=== PATIENT | male | born 1995 | race Two or more races ===

== ENCOUNTER 2024-11-18 17:03 | Emergency (ER) | payer SELFPAY ==
[~2024-11-18] VITALS: Ht 177.8 cm; Wt 115.0 kg
[2024-11-18 17:05] VITALS: TEMP 98.6
[2024-11-18] MEDS: SODIUM CHLORIDE 0.9% 1,000 ML IV ONE (17:23)
[2024-11-18] MEDS: ONDANSETRON HCL 4 MG/2 ML VIAL IV ONE (17:23)
--- NOTE | 2024-11-18 17:31 | ED.PDOC ---
HPI Comments HPI: Poor Historian. 23-year-old male brought in by ambulance from home for evaluation of diaphoresis nausea and vomiting nonbilious nonbloody and nonspecific chest pain that happened while he was showering today. Never had this happened before. Denies any use of drugs or alcohol or tobacco. He only smokes marijuana. Denies any allergies. Patient had three episodes of nausea and vomiting today. Denies any abdominal pain or diarrhea or fever. Vitals Temp: 98.6 F HR: 58 RR: 18 BP: 129/83 SPO2: 97% RA Past Medical History: Denies Past Surgical History: Denies REVIEW OF SYSTEMS: CONSTITUTIONAL: Denies acute: fever, chills, HEAD: Denies acute: headache, photophobia Eyes: Denies acute: Double vision, vision loss, eye pain, eye discharge. EARS: Denies acute: tinnitus, hearing loss, ear discharge, ear pain, THROAT: Denies acute: sore throat, swelling, difficulty swallowing , pain with swallowing, change in voice. NECK: Denies acute: neck pain, neck swelling, stiff neck. HEART: Denies acute : , palpitations, LUNGS: Denies acute: SOB, wheezing, cough, hemoptysis ABDOMEN: Denies acute: abdominal pain, , diarrhea, melena , hematemesis, hematochezia SKIN: Denies acute: rash, redness, lesions, itchiness. EXTREMITIES: Denies acute: calf pain, numbness, tingling, weakness, denies pain in extremity. Denies acute: Low back pain. Neuro: Denies acute: focal neurological deficit, motor or sensory focal neurological deficit, tremors, seizure like activity, confusion, dizziness, change in mental status, loss of bowel or bladder function, cauda equina like symptoms. : Denies acute: dysuria, hematuria, flank pain, increase in urinary frequency. PSYCH: Denies acute: hallucination, suicidal ideation, homicidal ideation. PHYSICAL EXAM: General: ----mild----acute distress, awake and alert. Head: normocephalic, atraumatic. Neck: supple, trachea is midline, no swelling. Throat: Normal phonation. Eyes:, no erythema, no purulent discharge, no proptosis, no icterus. Heart: regular tachycardia, no significant murmur appreciated. Lungs: no apparent respiratory distress, Able to speak in full sentences. No wheezing, no rhonchi, no crackles. No stridors Clear to auscultation bilaterally. Abdomen: non tender to palpation, slightly distended, soft, no guarding, no rebound, + bowel sounds. Neuro: Awake, Alert, oriented to name, self, situation, follows commands GCS=15. Speech is normal. Skin: no petechia, no purpura, no cyanosis, non-pale, not jaundice. Lower extremities: --no - Pitting edema no deformity, no focal swelling, no calf TTP. Makes eye contact. moves all four extremities. Face: no apparent facial droop. Ambulating in the ED independently. ED COURSE: Chief Complaint: Chest Pain Time Seen by MD: 17:25 Primary Care Provider: NONE Reviewed Notes: Nurses Notes, Allergies Allergies: Coded Allergies: NO KNOWN ALLERGIES (Unverified , 11/18/24) Information Source: Patient Mode of Arrival: EMS Past Medical History PAST MEDICAL HISTORY: Denies Surgical History: Denies all surgeries Family History Family History: Reviewed,noncontributory to illness Social History Smoker: Non-Smoker Alcohol: Denies ETOH Use Drugs: Marijuana Lives In: Home Was a procedure done? Was a procedure done?: No CP Differential Dx Differential Diagnosis: N/A Differential Diagnosis: Other (As far as abdominal pain, DDX include but not limited to diverticulitis, colitis, gastroenteritis, acute abdomen, SBO, enteritis, constipation, volvulus, appendicitis, Gallbladder disease, choledocolithiasis, ascending cholangitis, pancreatitis, intraAbdominal mass/neoplasm, hepatitis, UTI, pylonephritis, kidney stone, aneurysm, dissection, Inflammatory bowel disease, gastroparesis, ischemic bowel.) Differential Diagnosis: Angina, Costochondritis, Gastritis, Other (Ddx include but not limitied to gastritis, musculoskeletal pain, radiculopathy, atypical chest pain, dissection, aneurysm, ACS, unstable angina, hiatal hernia, GERD, anxiety, costochondritis, PE, pneumothroax, neoplasm, cardiac ischemia, drug abuse, anemia.) X-Ray, Labs, Meds, VS Vital Signs Date Time Temp Pulse Resp B/P (MAP) Pulse Ox O2 Delivery O2 Flow Rate FiO2 11/18/24 17:49 49 18 116/39 (64) 98 11/18/24 17:07 50 11/18/24 17:05 98.6 58 18 129/83 (98) 97 98.6 Lab Test 11/18/24 17:44 Range/Units White Blood Count 10.0 4.4-10.8 10^3/uL Red Blood Count 4.82 4.5-5.90 10^6/uL Hemoglobin 14.4 13.5-17.5 g/dL Hematocrit 42.9 41.0-53.0 % Mean Corpuscular Volume 89.1 80.0-100.0 fL Mean Corpuscular Hemoglobin 29.9 28.0-32.0 pg Mean Corpuscular Hemoglobin Concent 33.5 32.0-36.0 g/dL Red Cell Distribution Width 12.5 11.8-14.3 % Platelet Count 225 140-450 10^3/uL Mean Platelet Volume 7.6 6.9-10.8 fL Neutrophils (%) (Auto) 54.9 37.0-80.0 % Lymphocytes (%) (Auto) 34.3 10.0-50.0 % Monocytes (%) (Auto) 8.1 0.0-12.0 % Eosinophils (%) (Auto) 2.3 0.0-7.0 % Basophils (%) (Auto) 0.4 0.0-2.0 % Neutrophils # (Auto) 5.5 1.6-8.6 10 ^3/uL Lymphocytes # (Auto) 3.4 0.4-5.4 10 ^3/uL Monocytes # (Auto) 0.8 0-1.3 10 ^3/uL Eosinophils # (Auto) 0.2 0-0.8 10 ^3/uL Basophils # (Auto) 0 0-0.2 10 ^3/uL Nucleated Red Blood Cells 0.0 % Sodium Level 141 136-145 mmol/L Potassium Level 3.5 3.5-5.1 mmol/L Chloride Level 110 H 98-107 mmol/L Carbon Dioxide Level 26 20-31 mmol/L Anion Gap 5 5-15 Blood Urea Nitrogen 10 9-23 mg/dL Creatinine 1.25 0.700-1.30 mg/dL Glomerular Filtration Rate Calc 80 >90 mL/min BUN/Creatinine Ratio 8.0 L 10.0-20.0 Serum Glucose 112 H 74-106 mg/dL Lactic Acid Level 2.0 0.4-2.0 mmol/L Calcium Level 9.3 8.7-10.4 mg/dL Magnesium Level 2.0 1.6-2.6 mg/dL Total Bilirubin 0.4 0.2-1.0 mg/dL Aspartate Amino Transferase (AST) 24 13-40 U/L Alanine Aminotransferase (ALT) 39 7-40 U/L Alkaline Phosphatase 119 H 46-116 U/L Creatine Kinase 233 H 46-171 U/L Troponin I High Sensitivity 5 </=54 ng/L Total Protein 7.5 5.7-8.2 g/dL Albumin 4.3 3.2-4.8 g/dL Lipase 33 12-53 U/L Plasma/Serum Blood Alcohol 4.6 <10 mg/dL [place] [id number] Ph: [phone] DIAGNOSTIC IMAGING Diagnostic Imaging Report : [id number] Signed PATIENT: TONY GOMEZ ACCT: [id number] UNIT: [id number] : 1995 LOC: ER ROOM / BED: / AGE / SEX: 29 / M ADM STATUS: REG ER SERVICE 13 ORDERING PHYSICIAN: CAMERON DE JESUS DO PROCEDURE(s): CXRP - CHEST PORTABLE REASON: n/v diaphoretic, cp ORDER NUMBER(s): [id number], ACCESSION NUMBER(s): [id number] EXAM: XR Chest, 1 View CLINICAL INDICATION: n/v diaphoretic, cp TECHNIQUE: Frontal view of the chest. COMPARISON: None FINDINGS: LUNGS AND PLEURAL SPACES: Mild pulmonary congestion. No consolidation. No pneumothorax. HEART: Unremarkable. No cardiomegaly. MEDIASTINUM: Unremarkable. Normal mediastinal contour. BONES/JOINTS: Unremarkable. No acute fracture. OTHER FINDINGS: . IMPRESSION: Mild pulmonary congestion. ATED BY: KAROLINA PHILLIPS MD DICTATED DATE/TIME: 11/18/241820 SIGNED BY: KAROLINA PHILLIPS MD SIGNED DATE/TIME: 11/18/241820 CC: [address] [place] [address], [place] - [address] Ph: [phone] DIAGNOSTIC IMAGING Diagnostic Imaging Report : [id number] Signed PATIENT: TONY GOMEZ ACCT: [id number] UNIT: [id number] : 1995 LOC: ER ROOM / BED: / AGE / SEX: 29 / M ADM STATUS: REG ER SERVICE 1710 ORDERING PHYSICIAN: CAMERON DE JESUS DO PROCEDURE(s): ABPL - CT AB PEL WO CON-NO ORAL OR IV REASON: n/v diaphoretic, cp/ ORDER NUMBER(s): [id number], ACCESSION NUMBER(s): [id number] Procedure: CT CT AB PEL WO CON-NO ORAL OR IV 11/18/2024 05:54 PM Indication: n/v diaphoretic, cp/ Comparison Study: None Technique: Axial images were obtained and reformatted in coronal and sagittal planes. All CT scans at this medical facility are performed using dose modulation techniques as appropriate to a performed exam including the following: Automated exposure control was utilized; adjustment of the MA and/or KV according to patient size; and use of iterative reconstruction technique. CT Dose: CTDI volume is 22.86 mGy. Dose-length product is 1325.64 mGy*cm FINDINGS: Lower Chest: Unremarkable. Hepatobiliary: Unremarkable. Spleen: Unremarkable. Pancreas: Unremarkable. Adrenal Glands: Unremarkable. tract: The kidneys are normal in size bilaterally without hydronephrosis or nephrolithiasis. The urinary bladder is unremarkable. GI tract: The stomach is grossly normal in appearance. Nondistended fluid-filled small bowel loops in the mid to lower abdomen. Mild circumferential mural thickening of the ascending and transverse colon noted. The appendix is normal. Lymphatics: No mesenteric, retroperitoneal or periportal lymphadenopathy. Vasculature: The abdominal aorta is normal in in caliber. Pelvic Organs: Unremarkable Bones/soft tissues: No acute abnormality. Other: None. IMPRESSION: 1. Findings suggestive of enterocolitis. No evidence of bowel obstruction. ATED BY: MADIE GALEAS MD DICTATED DATE/TIME: 11/18/24 1833 SIGNED BY: MADIE GALEAS MD SIGNED DATE/TIME: 11/18/24 1833 CC: Time of 1ST Reevaluation: 17:31 Reevaluation 1ST: Unchanged Patient Education/Counseling: Diagnosis, Treatment Family Education/Counseling: No Family Present Comments Patient eloped Patient presented with the above HPI.---GI and chest pain cardiac---workup was initiated. patient was found with the above mentioned diagnosis. the following medications were ordered: please refer to order lists of meds and tests obtained by myself Dr. De Jesus. Patient has been observed in the ED adequate length of time to insure improvement/stability. Escalation of care considered: Consideration of escalation to observation or admission Patient eloped All the reports of any imaging studies that were ordered by myself were reviewed by myself. Departure 1 Departure Time of Disposition: 19:18 Impression: Primary Impression: Enterocolitis Additional Impressions: Pulmonary vascular congestion Chest pain Nausea and vomiting Eloped from emergency department Disposition: 07 LEFT AWOL/ELOPED Condition: Guarded Additional Instructions: Patient eloped Discharged With: Self Critical Care Note Critical Care Time?: No Heart Score Heart Score: Heart Score Response (Comments) Value History Slightly Suspicious 0 EKG Normal 0 Age <45 0 Risk Factors No known risk factors 0 Troponin Normal limit 0 Total 0 I personally scribed for CAMERON DE JESUS DO ([email or web address]) on 11/18/24 at 17:31. El ectronically submitted by Kamilah Sosa ([facility]). I personally scribed for CAMERON DE JESUS DO ([email or web address]) on 11/18/24 at 20:06. Elect ronically submitted by Kamilah Sosa ([facility]). CAMERON DE JESUS DO Nov 18, 2024 17:31
[2024-11-18 17:49] VITALS: BP 116/39; PULSE 49; RESP 18; O2SAT 98
[2024-11-18 18:00] LABS: Basophils # (auto) 0 10 ^3/uL (0-0.2); Basophils % (auto) 0.4 % (0.0-2.0); Eosinophils # (auto) 0.2 10 ^3/uL (0-0.8); Eosinophils % (auto) 2.3 % (0.0-7.0); Hematocrit 42.9 % (41.0-53.0); Hemoglobin 14.4 g/dL (13.5-17.5); Lymphocytes # (auto) 3.4 10 ^3/uL (0.4-5.4); Lymphocytes % (auto) 34.3 % (10.0-50.0); Mean Corpuscular Hemoglobin 29.9 pg (28.0-32.0); Mean Corpuscular Hgb Conc. 33.5 g/dL (32.0-36.0); Mean Corpuscular Volume 89.1 fL (80.0-100.0); Monocytes # (auto) 0.8 10 ^3/uL (0-1.3); Monocytes % (auto) 8.1 % (0.0-12.0); Neutrophils # (auto) 5.5 10 ^3/uL (1.6-8.6); Neutrophils % (auto) 54.9 % (37.0-80.0); Platelet Count (auto) 225 10^3/uL (140-450); Red Blood Cells 4.82 10^6/uL (4.5-5.90); Red Cell Distribution Width 12.5 % (11.8-14.3)
--- NOTE | 2024-11-18 18:16 | ECG ---
[facility] Test Date: 2024-11-18 Test Time: 17:07:01 Pat Name: TONY GOMEZ Department: ED Room: Gender: M Regional Trainer: prashanth : 1995 Requested By: CAMERON DE JESUS Order Number: [id number] Reading MD: Josh Roque Measurements Intervals [place] Rate: 50 P: 69 FL: 160 QRS: 46 QRSD: 79 T: 50 QT: 434 QTc: 396 Interpretive Statements Sinus rhythm ST elev, probable normal early repol pattern Electronically Signed On 11-20-2024 22:09:25 PDT by Josh Roque Please click the below link to view image of tracing.
[2024-11-18 18:17] LABS: Alanine Aminotransferase 39 U/L (7-40); Albumin 4.3 g/dL (3.2-4.8); Anion Gap 5 (5-15); Aspartate Aminotransferase 24 U/L (13-40); Blood Urea Nitrogen 10 mg/dL (9-23); Calcium 9.3 mg/dL (8.7-10.4); Carbon Dioxide 26 mmol/L (20-31); Lipase 33 U/L (12-53); Potassium 3.5 mmol/L (3.5-5.1); Sodium 141 mmol/L (136-145); Total Protein 7.5 g/dL (5.7-8.2)
[2024-11-18 18:18] LABS: Bilirubin, Total 0.4 mg/dL (0.2-1.0)
--- NOTE | 2024-11-18 18:24 | DVH ---
EXAM: XR Chest, 1 View CLINICAL INDICATION: n/v diaphoretic, cp TECHNIQUE: Frontal view of the chest. COMPARISON: None FINDINGS: LUNGS AND PLEURAL SPACES: Mild pulmonary congestion. No consolidation. No pneumothorax. HEART: Unremarkable. No cardiomegaly. MEDIASTINUM: Unremarkable. Normal mediastinal contour. BONES/JOINTS: Unremarkable. No acute fracture. OTHER FINDINGS: . IMPRESSION: Mild pulmonary congestion.
--- NOTE | 2024-11-18 18:35 | DVH ---
Procedure: CT CT AB PEL WO CON-NO ORAL OR IV 11/18/2024 05:54 PM Indication: n/v diaphoretic, cp/ Comparison Study: None Technique: Axial images were obtained and reformatted in coronal and sagittal planes. All CT scans at this medical facility are performed using dose modulation techniques as appropriate to a performed e xam including the following: Automated exposure control was utilized; adjustment of the MA and/or KV according to patient size; and use of iterative reconstruction technique. CT Dose: CTDI volume is 22. 86 mGy. Dose-length product is 1325.64 mGy*cm FINDINGS: Lower Chest: Unremarkable. Hepatobiliary: Unremarkable. Spleen: Unremarkable. Pancreas: Unremarkable. Adrenal Glands: Unremarkable. tract: The kidneys are normal in size bilaterally without hydronephrosis or nephrolithiasis. The u rinary bladder is unremarkable. GI tract: The stomach is grossly normal in appearance. Nondistended fluid-filled small bowel loops in the mid to lower abdomen. Mild circumferential mural thickening of the ascending and transverse col on noted. The appendix is normal. Lymphatics: No mesenteric, retroperitoneal or periportal lymphadenopathy. Vasculature: The abdominal aorta is normal in in caliber. Pelvic Organs: Unremarkable Bones/soft tissues: No acute abnormality. Other: None. IMPRESSION: 1. Findings suggestive of enterocolitis. No evidence of bowel obstruction.
[2024-11-18 19:22] LABS: Alkaline Phosphatase 119 U/L (46-116); Chloride 110 mmol/L (98-107); Creatine Kinase IFCC 233 U/L (46-171); Glucose 112 mg/dL (74-106)
[2024-11-18 19:36] LABS: Blood Alcohol 4.6 mg/dL (<10)
== END 2024-11-18 20:23 | disposition left against medical advice (07) ==
LOC: ER 17:03 → EDBD 17:03 → ER 20:23
DX: K52.9 Noninfective gastroenteritis and colitis, unspecified (principal); R09.89 Other specified symptoms and signs involving the circulatory and respiratory systems; R07.9 Chest pain, unspecified; R61 Generalized hyperhidrosis; F12.90 Cannabis use, unspecified, uncomplicated
CPT/HCPCS: 36415; 71045; 74176; 80053; 80320; 82550; 83605; 83690; 83735; 84484; 85025; 93005

== ENCOUNTER 2024-11-24 19:52 | Emergency (ER) | payer MEDICAID, OTHER ==
[~2024-11-24] VITALS: Ht 190.5 cm; Wt 280.0 kg
[2024-11-24 19:59] VITALS: BP 0/0; PULSE 0; RESP 16; TEMP 100.5; O2SAT 0
[2024-11-24] MEDS: CALCIUM CHLOR(10%) 100MG/ML 10ML SYRINGE IV ONE (20:02)
[2024-11-24] MEDS: EPINEPHrine HCL 1 MG/10 ML SYRG ONE ×2 (20:04→20:18)
--- NOTE | 2024-11-24 20:09 | ED.PDOC ---
CPR-HPI HPI Comments 29-year-old male with unknown cardiac history brought in by EMS for CC of witnessed arrest. Per EMS, patient was with family and had a witnessed collapse, was unresponsive and family called 911. Approximate down time was 5 minutes. CPR was initiated by Law Enforcement responding to call. En route, patient was given EPI x 3 and was intubated. IO access established to left lower tibia. Patient arrived to ED with CPR in progress via Auto-Pulse (automatic compression device). ACLS protocols continued when patient arrived to Bed 19. ACLS protocols were continued on arrival to the ED. Time Seen by MD: 19:51 Primary Care Provider: NONE Reviewed Notes: Medications, Allergies Allergies: Coded Allergies: NO KNOWN ALLERGIES (Unverified , 11/18/24) Information Source: Emergency Med Personnel Mode of Arrival: EMS Timing: Minutes Duration: Down time prior EMS: (5 minutes) Onset: Witnessed Available Hx: Unknown Inital rhythm: Asystole Treatment: CPR, Intubation, Epinephrine Response: No response Associated signs and symptoms: Unknown Review of Systems: REVIEW OF SYSTEMS:Unable to obtain due to patient being unresponsive. Vital Signs Vital Signs Date Time Temp Pulse Resp B/P (MAP) Pulse Ox O2 Delivery O2 Flow Rate FiO2 11/24/24 19:59 100.5 0 0 0/0 (0) 0 100.5 11/24/24 19:59 Mechanical Ventilator+ 25 100 100 Physical Exam General: Patient is unresponsive HEENT: Pupils fixed, dilated, nonreactive. There is no corneal reflex. Skin: Palms and soles pale. Cardiac: No heart sounds auscultated, no pulses palpated Abdomen: Soft, nondistended Respiratory: No spontaneous respirations, no breath sounds auscultated. Mechanical breath sounds auscultated over b/l upper lobes with bagging. Neuro: GCS 3, patient is unresponsive to painful stimulus, Past Medical History Past Medical History (Other): UNKNOWN HEART CONDITION Surgical History: Denies all surgeries Family History Family History: Reviewed,noncontributory to illness Social History Smoker: Non-Smoker Alcohol: Denies ETOH Use Drugs: Marijuana Lives In: Home Was a procedure done? Was a procedure done?: No Differential Dx CPR Differential Diagnosis: Cardiopulmonary arrest, Myocardial Infarction, Pulmonary Embolus, Other Other Differential Diagnosis CVA X-Ray, Labs, Meds, VS Vital Signs Date Time Temp Pulse Resp B/P (MAP) Pulse Ox O2 Delivery O2 Flow Rate FiO2 11/24/24 19:59 100.5 0 0 0/0 (0) 0 100.5 11/24/24 19:59 0 16 Mechanical Ventilator+ 25 100 100 11/24/24 19:52 100.5 0 0 0/0 (0) 0 100.5 Time of 1ST Reevaluation: 20:46 Reevaluation 1ST: N/A Patient Education/Counseling: Pt Unresponsive Family Education/Counseling: Diagnosis, Treatment Departure 1 Departure Time of Disposition: 20:47 Impression: Primary Impression: Cardiac arrest Disposition: 20 Condition: Other Comments Cardiac compressions were performed by staff in order to sustain blood flow. The patient was ventilated and oxygenated. The patient received appropriate ACLS measures and these were repeated as necessary throughout the resuscitation. CPR was performed under my direct supervision and guidance. See patient resuscitation status note for medications and times given. Critical care time spent > 30 minutes in coordination of efforts for cardiopulmonary resuscitation. Family members were notified that the patient may pass away soon. After > 60 minutes of resuscitation efforts, > 10 rounds of epinephrine in addition to sodium bicarbonate, dextrose, and calcium patient remained in asystole and no ROSC was obtained. There was no cardiac activity on bedside ultrasound. A single defibrillation was performed at family's request. Family requested resuscitation efforts be continued until patient's mother arrived at the hospital. Additional doses of epinephrine were discontinued. Compressions were continued at family member's request until patient's mother arrived. After discontinuation of resuscitation, I did not observe spontaneous breathing or appreciate heart sounds on auscultation. There was no palpable radial pulse. The patient did not respond to nail bed stimuli. I examined the patient and there was no pupillary response to light. Patient was pronounced . TOD: 20:46 Critical Care Note Critical Care Time?: No Heart Score Heart Score: Heart Score Response (Comments) Value History N/A 0 EKG N/A 0 Age N/A 0 Risk Factors N/A 0 Troponin N/A 0 Total 0 Stability Stability form required: No I personally scribed for BUSHRA FAIRBANKS MD ([email or web address]) on 11/24/24 at 20:09. Electronically submitted by Abimael Barrios ([email or web address]). I personally scribed for BUSHRA FAIRBANKS MD ([email or web address]) on 11/24/24 at 20:33. Electronically submitted by Abimael Barrios ([email or web address]). I personally scribed for BUSHRA FAIRBANKS MD ([email or web address]) on 11/24/24 at 20:36. Electronically submitted by Abimael Barrios ([email or web address]). I personally scribed for BUSHRA FAIRBANKS MD ([email or web address]) on 11/24/24 at 20:45. Electronically submitted by Abimael Barrios ([email or web address]). I personally scribed for BUSHRA FAIRBANKS MD ([email or web address]) on 11/24/24 at 20:48. Electronically submitted by Abimael Barrios ([email or web address]). BUSHRA FAIRBANKS MD Nov 24, 2024 20:09
--- NOTE | 2024-11-25 02:31 | RESUS ---
CODE BLUE ASSESSSMENT History of Events History of Events: 29-year-old male with unknown cardiac history brought in by EMS for CC of witnessed arrest. Per EMS, patient was with family and had a witnessed collapse, was unresponsive and family called 911. Approximate down time was 5 minutes. CPR was initiated by Law Enforcement responding to call. En route, patient was given EPI x 3 and was intubated. IO access established to left lower tibia. Patient arrived to ED with CPR in progress via Auto-Pulse (automatic compression device). ACLS protocols continued when patient arrived to Bed 19. ACLS protocols were continued on arrival to the ED. Initial Information Date: Nov 24, 2024 Location of Arrest: In Field Arrest Witnessed: Yes CPR started by whom: EMS Last seen well: RIGHT BEFORE ARREST Pre-Hospital Care: ACLS Type of arrest: Cardiac, Respiratory, Trauma, Adult, Witnessed Spontaneous Respirations: No Pulse Present: No Monitoring: ECG, Pulse Oximetry, Apnea, Telemetry Crash Cart Opened and Supplies: Yes Comment: UNKNOWN TIME OF ARREST OR TIME OF INITIAL CPR ALL DONE IN FIELD, ARRIVED TO ED 1950 Airway Ventilation Breathing at Onset: Apneic O2 Sat by Pulse Oximetry: 0 Oxygen Delivery Method: Ambu-Bag Oxygen 100% BY EMS Artificial Ventilation: Bag/Endo tube Intubation Size: 7.0 cuffed Intubated by: EMS Intubated orally: Yes Intubated Nasaly: No Tube secured at: 24 CO2 indicator used: Yes Confirmation: Auscultation, Exhaled CO2 Comments: INTUBATION DONE BY EMS UNKNOWN TIME Circulation Circulation : Time: 20:54 Pulse Rate (adult): 0 Blood Pressure Systolic: 0 Blood Pressure Diastolic: 0 Temperature (Fahrenheit): 100.5 Defibrillation Defbrillation : Time Defibrillator Applied: 20:14 EKG Rhythm: Asystole Compressions: Device Compressions Hold/Resume: 2013 Time Defibrillator Shocked Pt.: 20:14 Defib. Joules: 120 EKG Rhythm: Asystole Comment FAMILY REQUESTED 1 SHOCK. Procedure - IV Procedure - IV : IV start time: 20:14 IV Side: Left IV Location: External Jugular IV Catheter Type: Saline Lock IV Placed by NATASHA ZAMUDIO IV Gauge: 18 IV Line Care: Saline Flush Procedure - Intraosseous Site of Intraosseous: Tibia bryant-medial Intraosseous inserted by: EMS Medications & Response Medications and Responses #1: Medication Time: 19:54 ADULT Medications Given ADULT: Epinephrine 1 mg, Sodium Bacarbinate 50 meq Route of Administration: IO Heart Rate: 0 EKG Rhythm: Asystole Blood Pressure Systolic: 0 Blood Pressure Diastolic: 0 Respiratory Rate: 0 O2 Sat by Pulse Oximetry: 0 IV Line Rate: 1000 EKG Rhythm: Asystole Comment NO PULSE 1953 AND 1955 ASYSTOLE ON MONITOR Medications and Responses #2: Medication Time: 19:57 ADULT Medications Given ADULT: Epinephrine 1 mg, D50 (amp) Route of Administration: IO Heart Rate: 0 EKG Rhythm: Asystole Blood Pressure Systolic: 0 Blood Pressure Diastolic: 0 Respiratory Rate: 0 O2 Sat by Pulse Oximetry: 0 IV Line Rate: 1000 EKG Rhythm: Asystole Comment NO PULSE 1957 ASYSTOLE ON MONITOR Medications and Responses #3: Medication Time: 20:00 ADULT Medications Given ADULT: Epinephrine 1 mg, Sodium Bacarbinate 50 meq Route of Administration: IO Heart Rate: 0 EKG Rhythm: Asystole Blood Pressure Systolic: 0 Blood Pressure Diastolic: 0 Respiratory Rate: 0 O2 Sat by Pulse Oximetry: 0 IV Line Rate: 1000 EKG Rhythm: Asystole Comment NO PULSE 2001 ASYSTOLE ON MONITOR, NO CARDIAC ACTIVITY BY U/S Medications and Responses #4: Medication Time: 20:03 ADULT Medications Given ADULT: Epinephrine 1 mg, Calcium Chloride 10 mL Route of Administration: IO Heart Rate: 0 EKG Rhythm: Asystole Blood Pressure Systolic: 0 Blood Pressure Diastolic: 0 Respiratory Rate: 0 O2 Sat by Pulse Oximetry: 0 IV Line Rate: 1000 EKG Rhythm: Asystole Comment NO PULSE 2003 ASYSTOLE ON MONITOR Medications and Responses #5: Medication Time: 20:06 ADULT Medications Given ADULT: Epinephrine 1 mg Route of Administration: IO Heart Rate: 0 Blood Pressure Systolic: 0 Blood Pressure Diastolic: 0 Respiratory Rate: 0 O2 Sat by Pulse Oximetry: 0 IV Line Rate: 1000 EKG Rhythm: Asystole Comment NO PULSE 2005, AND 2007 ASYSTOLE ON MONITOR Medications and Responses #6: Medication Time: 20:09 ADULT Medications Given ADULT: Epinephrine 1 mg Heart Rate: 0 EKG Rhythm: Asystole Blood Pressure Systolic: 0 Blood Pressure Diastolic: 0 Respiratory Rate: 0 O2 Sat by Pulse Oximetry: 0 IV Line Rate: 1000 EKG Rhythm: Asystole Comment NO PULSE 2009 ASYSTOLE ON MONITOR Medications and Responses #7: Medication Time: 20:12 ADULT Medications Given ADULT: Epinephrine 1 mg Route of Administration: IO Heart Rate: 0 EKG Rhythm: Asystole Blood Pressure Systolic: 0 Blood Pressure Diastolic: 0 Respiratory Rate: 0 O2 Sat by Pulse Oximetry: 0 IV Line Rate: 1000 EKG Rhythm: Asystole Comment NO PULSE 2011 AND 2013 ASYSTOLE ON MONITOR Medications and Responses #8: Medication Time: 20:15 ADULT Medications Given ADULT: Epinephrine 1 mg Route of Administration: IV Heart Rate: 0 EKG Rhythm: Asystole Blood Pressure Systolic: 0 Blood Pressure Diastolic: 0 Respiratory Rate: 0 O2 Sat by Pulse Oximetry: 0 IV Line Rate: 1000 EKG Rhythm: Asystole Comment NO PULSE 2015 AND 2017 ASYSTOLE ON MONITOR Medications and Responses #9: Medication Time: 20:18 ADULT Medications Given ADULT: Epinephrine 1 mg Route of Administration: IV Heart Rate: 0 EKG Rhythm: Asystole Blood Pressure Systolic: 0 Blood Pressure Diastolic: 0 Respiratory Rate: 0 O2 Sat by Pulse Oximetry: 0 IV Line Rate: 1000 EKG Rhythm: Asystole Comment NO PULSE 2019 ASYSTOLE ON MONITOR Medications and Responses #10: Medication Time: 20:21 ADULT Medications Given ADULT: Epinephrine 1 mg Route of Administration: IV Heart Rate: 0 Blood Pressure Systolic: 0 Blood Pressure Diastolic: 0 Respiratory Rate: 0 O2 Sat by Pulse Oximetry: 0 IV Line Rate: 1000 EKG Rhythm: Asystole Comment NO PULSE 2 ASYSTOLE ON MONITOR Medications and Responses #11: Medication Time: 20:23 ADULT Medications Given ADULT: Epinephrine 1 mg Route of Administration: IV Heart Rate: 0 EKG Rhythm: Asystole Blood Pressure Systolic: 0 Blood Pressure Diastolic: 0 Respiratory Rate: 0 O2 Sat by Pulse Oximetry: 0 IV Line Rate: 1000 EKG Rhythm: Asystole Comment NO PULSE 4 ASYSTOLE ON MONITOR[address] PER DR FAIRBANKS NO FURTHER MEDICATIONS TO BE GIVEN OR PULSE CHECK, BUT CONTINUE CPR PER FAMILY REQUEST UNTIL MOTHER ARRIVE. MOTHER ARRIVED AT 2045 CPR STOPPED. Nurses Notes Afia Coma Scale Eye Opening: None (1) Afia Coma Scale Verbal: None (1) Afia Coma Scale Motor: None (1) Glascow Total: 3 Pupil Reaction: Non Reactive Bedside Blood Glucose: 70 EKG Rhythm: Asystole Time Code Ended Time Code Ended: 20:46 Post Arrest Status: Outcome of code: Unsuccessful Patient pronounced by: DR FAIRBANKS Time patient pronounced: 20:46 Family notified: Yes Attending called: Yes Code Team Present: TASH CARRASCO RN HS, NATASHA BASE DRAW OPERATOR,GURPREET RN, MICHELL RN, SHERLY RN, SUNITHA ERT, MAGDIEL ERT, CORINNA ERT, CHRISTOPHER RT, KARSTEN RT Post Resuscitation Neurologica Pupil Size: 5 Comment: TASH RUIZ Nov 25, 2024 02:31
== END 2024-11-24 20:51 ==
LOC: ER 19:52 → EDBD 19:52 → ER 20:51
DX: I46.9 Cardiac arrest, cause unspecified (principal)
CPT/HCPCS: 92950; 99291; J0171; 36680